=== PATIENT | female | born 1985 | race Caucasian/White ===

== ENCOUNTER → 2021-05-02 | Outpatient (CLI) | payer OTHER ==
--- NOTE | 2021-05-02 17:15 | RAD ---
EXAM: XR KNEE 1-2 VIEWS, XR KNEE_AP BILAT STANDING, XR HIP (WITH OR WITHOUT PELVIS)LEFT 1 VIEW 2020 1:38 PM CLINICAL INDICATION: Chronic left hip pain and bilateral knee pain COMPARISON: None TECHNIQUE: AP view of the pelvis and frog-leg lateral view of the left hip. Standing AP bilateral vi ew of the knees. Lateral and sunrise views of the right left knee. FINDINGS: Left hip: No acute fracture. Alignment is normal. Hip joint spaces are maintained. There is an osseou s bump at the left femoral head neck junction. Borderline acetabular overcoverage on the left. Perhap s minimal bump at the right femoral head neck junction. Pubic symphysis and sacroiliac joints are nor mal. Lower lumbar spine is unremarkable. Knees: No acute fracture or malalignment. Joint spaces are maintained. No joint effusion or soft tiss ue abnormality. IMPRESSION: 1. 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 2. Normal knees. Electronically signed by: Jailyn Angel MD (05/02/2021 5:12 PM) [id number]
== END ==
LOC: RAD 13:33
PROVIDERS: ATTEND Physician Assistant
DX: M24.851 Other specific joint derangements of right hip, not elsewhere classified (principal); M24.852 Other specific joint derangements of left hip, not elsewhere classified; M25.552 Pain in left hip; M25.561 Pain in right knee; M25.562 Pain in left knee
CPT/HCPCS: 73501; 73565; 73560-50